=== PATIENT | female | born 1955 | race Caucasian/White ===

== ENCOUNTER 2018-07-25 14:50 | Inpatient (IN) | payer MEDICARE, OTHER ==
[~2018-07-25] VITALS: Ht 167.6 cm; Wt 73.5 kg
[2018-07-25] MEDS ORDERED: RISP3TAB14 PO (15:37)
[2018-07-25] MEDS ORDERED: DULO30CA2 PO (15:37)
[2018-07-25 15:52] LABS: BASOPHILS # (AUTO) 0.1 K/uL (0.0-8.0); BASOPHILS % (AUTO) 0.9 % (0.0-2.0); EOSINOPHILS # (AUTO) 0.1 K/uL (0.0-0.7); EOSINOPHILS % (AUTO) 1.3 % (0.0-7.0); HEMATOCRIT 43.5 % (31.2-41.9); HEMOGLOBIN 14.3 g/dL (10.9-14.3); LYMPHOCYTES # (AUTO) 2.2 K/uL (20.0-40.0); LYMPHOCYTES % (AUTO) 22.5 % (20.5-51.5); MEAN CORPUSCULAR HEMOGLOBIN 26.4 uug (24.7-32.8); MEAN CORPUSCULAR HGB CONC 33 g/dL (32.3-35.6); MEAN CORPUSCULAR VOLUME 80.4 fL (75.5-95.3); MONOCYTES # (AUTO) 0.6 K/uL (2.0-10.0); MONOCYTES % (AUTO) 6.2 % (0.0-11.0); NEUTROPHILS # (AUTO) 6.7 K/uL (1.8-8.9); NEUTROPHILS % (AUTO) 69.1 % (38.5-71.5); PLATELET COUNT (AUTO) 194 K/uL (179-408); RED BLOOD CELL COUNT(AUTO) 5.41 MIL/uL (3.63-4.92); WHITE BLOOD COUNT (AUTO) 9.8 K/uL (3.8-11.8)
[2018-07-25 16:02] LABS: CARBON DIOXIDE 28 mmol/L (21-32); CHLORIDE 103 mmol/L (98-107); CREATININE 0.7 mg/dL (0.6-1.3); GLUCOSE 92 mg/dL (74-106); POTASSIUM 3.5 mmol/L (3.5-5.1); UREA NITROGEN, BLOOD 18 mg/dL (7-18)
[2018-07-25 16:05] LABS: *BILIRUBIN,URIN NEGATIVE (NEGATIVE); *BLOOD, URINE 1+ (NEGATIVE); *CLARITY,URINE SLIGHTLY CLOUDY (CLEAR); *COLOR,URINE YELLOW (YELLOW); *KETONES,URINE TRACE (NEGATIVE); *UROBILINOGEN,URINE 0.2 E.U./dl (NORMAL); LEUKOCYTE ESTERASE ,URINE 1+ (NEGATIVE); NITRITE, URINE NEGATIVE (NEGATIVE); PH,URINE 5.5 (5.0-8.0); UGLUCOSE NEGATIVE (NEGATIVE)
[2018-07-25 16:07] LABS: ALANINE AMINOTRANSFERASE 24 U/L (14-59); ALKALINE PHOSPHATASE 72 U/L (50-136); ASPARTATE AMINOTRANSFERASE 16 U/L (15-37); BILIRUBIN,DIRECT 0.1 mg/dL (0.0-0.2); BILIRUBIN,TOTAL 0.5 mg/dL (0.2-1.0); TOTAL PROTEIN, SERUM 8.1 g/dL (6.4-8.2)
[2018-07-25 16:09] LABS: ACETAMINOPHEN < 2.0 ug/mL (10-30); ETHANOL < 3 MG/DL (0-0)
[2018-07-25 16:17] LABS: *AMPHETAMINE, URINE NEGATIVE (NEGATIVE); *BARBITURATE, URINE NEGATIVE (NEGATIVE); *CANNABINOID, URINE NEGATIVE (NEGATIVE); *COCCAINE, URINE NEGATIVE (NEGATIVE); *OPIATE, URINE NEGATIVE (NEGATIVE); *PHENCYCLIDINE SCREEN,URINE NEGATIVE (NEGATIVE); BACTERIA,URINE MODERATE /HPF (NONE SEEN); MUCUS,URINE MODERATE /LPF (0-FEW); SQUAMOUS EPITHELIAL CELL,UR MANY /HPF (NONE SEEN); WBC,URINE 20-50 /HPF (0-3)
--- NOTE | 2018-07-25 17:16 | NUR ---
Pt resting in [facility] with NAD noted, family at bedside. Spoke with Yousuf Brown for psych eval, eta 1800.
--- NOTE | 2018-07-25 18:24 | NUR ---
Yousuf Brown arrived for psych eval.
--- NOTE | 2018-07-25 19:41 | NUR ---
Report given to RADHA Campbell Pt. admitted to MHU , under care of Dr. Cortes/Joe Belongs List completed
[2018-07-25] MEDS ORDERED: MAG HYDROX/AL HYDROX/SIMETH 30 ML LIQUID UDC PO PRN (19:45)
[2018-07-25] MEDS ORDERED: ZOLPIDEM 5 MG TABLET PO PRN (19:45)
[2018-07-25] MEDS ORDERED: LORAZEPAM 0.5 MG TABLET PO PRN (19:45)
[2018-07-25] MEDS ORDERED: MAGNESIUM HYDROXIDE 30 ML LIQUID UDC PO PRN (19:45)
[2018-07-25 20:00] VITALS: BP 134/76
[2018-07-25] MEDS ORDERED: CHOL200059 PO (21:51)
[2018-07-25] MEDS ORDERED: LOSA100T31 PO (21:51)
--- NOTE | 2018-07-26 06:34 | NUR ---
PATIENT SLEPT FOR APPROX 6HRS THROUGH THE NIGHT. SHE IS NOTED A/O 3, ABLE TO AMBULATE WITH STEADY GAIT AND ABLE TO MAKE HER NEEDS KNOWN. PATIENT IS PLEASANT AND COOPERATIVE AT THIS TIME, BRIGHT AFFECT, TANGENTIAL, FLIGHT OF IDEAS, HYPER RASTAFARI, POOR INSIGHT AND JUDGMENT IS NOTED TO THE REASON FOR HER ADMISSION TO MHU. PATIENT COMPLIANT WITH ADL. WILL CONTINUE TO MONITOR.
[2018-07-26 07:30] VITALS: BP 137/79
[2018-07-26] MEDS: DIVALPROEX SPRINKLE 125 MG CAP.SPRINK PO SCH ×2 (10:02→20:55)
[2018-07-26] MEDS: risperiDONE 1 MG TABLET PO SCH (10:02)
--- NOTE | 2018-07-26 15:42 | NUR ---
PROCESS GROUP NOTE: Patients were asked to discuss their thoughts on what knowledge or "life lessons" they would pass on to a younger generation. Subjective: "..." Objective: chemical plant worker arrived at patient bedside to invite patient to group. Patient was asleep and unable to be woken up. Assessment: Patient appeared to be sleeping calmly and deeply. chemical plant worker did not disturb. Plan: chemical plant worker will continue to encourage group attendance as scheduled and will continue to provide encouragement and support during MHU admission
[2018-07-26 16:00] VITALS: BP 139/75
[2018-07-26] MEDS ORDERED: CHOLECALCIFEROL 50000 UNIT PO SCH (16:30)
--- NOTE | 2018-07-26 17:16 | NUR ---
received patient alert on bed, AOx2, with paranoia, tends to refuse medication, seen and examined by Dr. Cortes, with new orders made, patient aware of the order, patient ambulatory self care, seen sitting in the activity room
[2018-07-26 19:56] VITALS: BP 138/88
[2018-07-26] MEDS: risperiDONE 2 MG TABLET PO SCH (20:55)
[2018-07-26] MEDS: SULFAMETH/TRIMETH 800/160 MG TABLET PO SCH (20:55)
--- NOTE | 2018-07-26 21:30 | NUR ---
RECEIVED PATIENT IN HER ROOM. SHE IS NOTED A/O X 3. SHE IS ABLE TO AMBULATE WITH STEADY GAIT AND ABLE TO MAKE HER NEEDS KNOWN. SHE WAS NOTED CALM AND PLEASANT UPON APPROACHED. BRIGHT AFFECT, DISORGANIZED, FLIGHT OF IDEAS, TANGENTIAL WITH POOR INSIGHT AND JUDGMENT TO THE REASON FOR HER ADMISSION TO MHU. PATIENT WAS COMPLIANT WITH ALL HER PO QHS MEDICATIONS INCLUDING HER ATB FOR UTI. V/S STABLE AT THIS TIME. SHE WAS REASSURED FOR HER SAFETY. WILL CONTINUE TO MONITOR.
[2018-07-26] MEDS: ACETAMINOPHEN 325 MG TABLET PO PRN (23:55)
[2018-07-27 07:30] VITALS: BP 133/68
[2018-07-27] MEDS: risperiDONE 1 MG TABLET PO SCH (08:41)
[2018-07-27] MEDS: LOSARTAN POTASSIUM 50 MG TABLET PO SCH (08:41)
[2018-07-27] MEDS: DIVALPROEX SPRINKLE 125 MG CAP.SPRINK PO SCH ×2 (08:41→20:26)
[2018-07-27] MEDS: SULFAMETH/TRIMETH 800/160 MG TABLET PO SCH ×2 (08:42→20:26)
[2018-07-27] MEDS ORDERED: Medication Not On Formulary EA (Losartan Potassium 100 MG) PO SCH (09:00)
--- NOTE | 2018-07-27 12:26 | NUR ---
Initial Discharge Instructions: Patient currently lives in a home with an elderly man and is daughter [[address], [address] [place] [address]; [phone]] by the names of "Mr. Fontaine" and his daughter, "Estella." Pt reports that she would like to return there upon discharge. Patient could not remember the contact numbers for these people. SANDY placed call to patient's Therapist, [place], at [facility] ([phone]) who confirmed that the patient does live with them. SANDY will also speak with patient's cousin, Keny ([phone]). SANDY will continue to collaborate with pt, family, support system, and MD regarding most appropriate discharge plans for this patient. SANDY will form a safe and proper discharge plan.
[2018-07-27 16:00] VITALS: BP 113/64
[2018-07-27] MEDS: risperiDONE 2 MG TABLET PO SCH (20:26)
[2018-07-27 21:17] VITALS: BP 126/67
--- NOTE | 2018-07-28 05:49 | NUR ---
GPS: REMAIN CALM AND COOPERATIVE. SLEPT FOR APPROX 8 HRS THROUGH THE NIGHT. A/O 3, ABLE TO AMBULATE WITH STEADY GAIT AND ABLE TO MAKE HER NEEDS KNOWN, BRIGHT AFFECT, TANGENTIAL, FLIGHT OF IDEAS, POOR INSIGHT AND JUDGMENT IS NOTED . PATIENT COMPLIANT WITH ADL. WILL CONTINUE TO MONITOR.
[2018-07-28 07:30] VITALS: BP 136/77
[2018-07-28] MEDS: DIVALPROEX SPRINKLE 125 MG CAP.SPRINK PO SCH ×2 (08:03→20:08)
[2018-07-28] MEDS: SULFAMETH/TRIMETH 800/160 MG TABLET PO SCH ×2 (08:03→20:08)
[2018-07-28] MEDS: LOSARTAN POTASSIUM 50 MG TABLET PO SCH (08:03)
[2018-07-28] MEDS: risperiDONE 1 MG TABLET PO SCH (08:04)
[2018-07-28] MEDS ORDERED: risperiDONE 1 MG TABLET PO SCH (09:00)
--- NOTE | 2018-07-28 09:10 | NUR ---
PATIENT HAS RECEIVED RISPERDAL 1MG PO. PT'S MEDICATION HAS BEEN INCREASED TO 2 MG PO AM. SPOKE WITH DR. ALANIS, ORDER RECEIVED TO START 2 MG TOMORROW, 07/29/18
[2018-07-28 16:00] VITALS: BP 118/65
[2018-07-28 20:00] VITALS: BP 131/66
[2018-07-28] MEDS: risperiDONE 2 MG TABLET PO SCH (20:08)
[2018-07-29] MEDS: ACETAMINOPHEN 325 MG TABLET PO PRN ×2 (00:43→20:29)
--- NOTE | 2018-07-29 06:05 | NUR ---
GPS: REMAIN CALM AND COOPERATIVE. SLEPT FOR APPROX 8 HRS THROUGH THE NIGHT. A/O 3, ABLE TO AMBULATE WITH STEADY GAIT AND ABLE TO MAKE HER NEEDS KNOWN, TANGENTIAL, FLIGHT OF IDEAS, POOR INSIGHT AND JUDGMENT IS NOTED . RESTING IN BED COMFORTABLY.PATIENT COMPLIANT WITH ADL. WILL CONTINUE TO MONITOR.
[2018-07-29 08:01] VITALS: BP 142/70
[2018-07-29] MEDS: DIVALPROEX SPRINKLE 125 MG CAP.SPRINK PO SCH ×2 (08:20→20:22)
[2018-07-29] MEDS: risperiDONE 2 MG TABLET PO SCH ×2 (08:20→20:22)
[2018-07-29] MEDS: LOSARTAN POTASSIUM 50 MG TABLET PO SCH (08:21)
[2018-07-29 16:47] VITALS: BP 106/58
[2018-07-29 21:16] VITALS: BP 120/57
[2018-07-30] MEDS: LOSARTAN POTASSIUM 50 MG TABLET PO SCH (08:21)
[2018-07-30] MEDS: risperiDONE 2 MG TABLET PO SCH ×2 (08:21→19:45)
[2018-07-30] MEDS: DIVALPROEX SPRINKLE 125 MG CAP.SPRINK PO SCH ×2 (08:21→19:45)
[2018-07-30 08:22] VITALS: BP 119/67
[2018-07-30 15:13] VITALS: BP 135/55
[2018-07-30 20:00] VITALS: BP 122/71
[2018-07-31 07:30] VITALS: BP 124/74
[2018-07-31] MEDS: DIVALPROEX SPRINKLE 125 MG CAP.SPRINK PO SCH ×2 (08:06→20:23)
[2018-07-31] MEDS: LOSARTAN POTASSIUM 50 MG TABLET PO SCH (08:06)
[2018-07-31] MEDS: risperiDONE 2 MG TABLET PO SCH ×2 (08:06→20:24)
[2018-07-31] MEDS ORDERED: ERGOCALCIFEROL 50,000 UNIT CAPSULE PO SCH (09:00)
[2018-07-31 15:08] VITALS: BP 99/71
--- NOTE | 2018-07-31 16:56 | NUR ---
GROUP NOTE: GOAL Patient will participate in the group discussion of the day or actively listen to other peers responses. INTERVENTION Social Work Emery Grinder invited patient to participate in a group discussion held from 2:00-2:45 pm in the activities room. Social Work Emery Grinder facilitated a group discussion regarding patients proudest moments and support systems that helped them accomplish those moments. SW redirected pt. when needed. RESPONSE Patient expressed interest in participating in todays group discussion. Patient expressed that she is most proud of her resiliency through the highs and lows of life. Patient discussed: of a family member, her immigrant status preventing her from furthering her education as well as the importance of sabianism. Patient discussed that the memory of a loved one kept her motivated and pt. is grateful for where life has brought her to. Patient shared a poem with the group and presented in good spirits. Patient interacted with her peer and remained calm and cooperative throughout group. PLAN Patient will be invited to attend the next group discussion.
--- NOTE | 2018-07-31 18:01 | NUR ---
Patient remained in room through out the day. patient still demonstrates delusions and paranoia behavior. Patient is compliant with medical treatment and medication administration. Patient denies any pain or discomfort at this time. Will continue to monitor and endorse plan of care to shift nurse manager nurse.
[2018-07-31 22:16] VITALS: BP 139/82
--- NOTE | 2018-08-01 05:50 | NUR ---
Received Pt in the hallway socializing with peers. A+Ox4, Pt is calm and pleasant on approach. Denies SI and verbally contracts for safety. Denies AH/VH. Compliant with medications, cooperative with care. Denies pain, in no acute distress.
[2018-08-01 07:58] VITALS: BP 119/69
[2018-08-01] MEDS: LOSARTAN POTASSIUM 50 MG TABLET PO SCH (08:13)
[2018-08-01] MEDS: risperiDONE 2 MG TABLET PO SCH ×2 (08:13→20:04)
[2018-08-01] MEDS: DIVALPROEX SPRINKLE 125 MG CAP.SPRINK PO SCH ×2 (08:13→20:03)
[2018-08-01 15:26] VITALS: BP 114/63
[2018-08-01 20:00] VITALS: BP 143/69
--- NOTE | 2018-08-01 20:00 | NUR ---
Rec'd pt in her room laying in bed with eyes closed. Opens her eyes to name. No s/s of acute distress noted. A&Ox3, cooperative and compliant with plan of care at this time. Does not appear to be responding to any internal stimuli. All safety precautions in place. Took all due medications. Will continue to monitor.
--- NOTE | 2018-08-02 06:25 | NUR ---
Pt without change in condition during shift. Slept x7.3 hours without difficulty. No s/s of acute distress noted. No episode of responding to internal stimuli. Woke up at 0500 and showered. Able to provide self care. All safety precautions in place. Will endorse to oncoming shift.
[2018-08-02 07:30] VITALS: BP 128/76
[2018-08-02] MEDS: risperiDONE 2 MG TABLET PO SCH ×2 (08:16→20:38)
[2018-08-02] MEDS: DIVALPROEX SPRINKLE 125 MG CAP.SPRINK PO SCH ×2 (08:16→20:38)
[2018-08-02] MEDS: LOSARTAN POTASSIUM 50 MG TABLET PO SCH (08:17)
[2018-08-02 16:00] VITALS: BP 103/53
[2018-08-02 20:28] VITALS: BP 124/69
--- NOTE | 2018-08-03 03:18 | NUR ---
GPS/NSG Patient first observed lying in bed without change in condition throughout shift. Compliant with medication. No s/s of acute distress noted. No episode of responding to internal stimuli. Able to provide self care. All safety precautions in place. Continue to follow plan of care as well as monitor for safety.
[2018-08-03 07:30] VITALS: BP 133/77
[2018-08-03] MEDS: DIVALPROEX SPRINKLE 125 MG CAP.SPRINK PO SCH ×2 (08:22→20:45)
[2018-08-03] MEDS: risperiDONE 2 MG TABLET PO SCH ×2 (08:22→21:00)
[2018-08-03] MEDS: LOSARTAN POTASSIUM 50 MG TABLET PO SCH (08:22)
--- NOTE | 2018-08-03 15:00 | NUR ---
Gps/Manager [employer]- Discharge planning in progress for tomorrow at around 1600 per SW. Cousin to provide transportation . Had been cooperative with staff, pleasant affect, attended her group , staying in the activity room. Making her needs known.
[2018-08-03 16:00] VITALS: BP 108/66
[2018-08-03 20:01] VITALS: BP 139/75
[2018-08-04 07:30] VITALS: BP 147/77
[2018-08-04 08:17] VITALS: BP 145/75
[2018-08-04] MEDS: risperiDONE 2 MG TABLET PO SCH (08:17)
[2018-08-04] MEDS: LOSARTAN POTASSIUM 50 MG TABLET PO SCH (08:17)
[2018-08-04] MEDS: DIVALPROEX SPRINKLE 125 MG CAP.SPRINK PO SCH (08:17)
--- NOTE | 2018-08-04 10:36 | NUR ---
DISCHARGE NOTE: Patient will be discharged back to her home [[address] [place] [address]; ]. Transportation will be provided by patients cousin Keny [[phone]], at 4:00pm. Patient is alert and oriented x3-4, is able to plan for self-care, and denies any SI/HI. Patient is aware and agreeable with discharge plans. Patient will follow-up with psychiatrist, Dr. Antonio Eugene [[id number], [address], [place] [address]; ] on August 18, 2018 at 10:00am. If patient is in need of a psychiatric follow-up sooner, she has been has been provided with a referral to [facility] [ [place] [address]; ] where patient can walk-in for appointment Tuesday thru Tuesday anytime between 8:00pm-5:00pm. Patient also has a follow-up appointment with her therapist, Radha Umaña [[id number], [address], [place] [address]; ], on Wednesday, August 08, 2018 at 11:00am. diversified crops ii farmworker has sent continuing care packet to psychiatrist. Patient has also been provided with outpatient mental health resources including [facility] Line [ ], Ann-Marie Taylor [ ], and the National Suicide Prevention Lifeline [ ].
--- NOTE | 2018-08-04 17:24 | NUR ---
PT LEFT UNIT ON W/C ACCOMPANIED BY ARINA AND COUSIN ZEHRA TO PRIVATE VEHICLE. PT IS PLEASANT, CALM AND COOPERATIVE. DENIES PAIN OR DISCOMFORT. DENIES SI AND HI. NO AGGRESSIVE OR COMBATIVE BEHAVIOR NOTED. ABLE TO VERBALIZE NEEDS. LEFT WITH ALL NOTED BELONGINGS AND PAPERWORK. V/S STABLE. IN NO ACUTE DISTRESS.
== END 2018-08-04 17:26 | disposition home or self-care (01) | DRG 885 ==
LOC: ER 14:50 → GPS 19:15
PROVIDERS: ADMIT Psychiatry & Neurology Psychiatry; ATTEND Nurse Practitioner Acute Care
DX: F25.0 Schizoaffective disorder, bipolar type (principal); G93.41 Metabolic encephalopathy; I42.2 Other hypertrophic cardiomyopathy; N39.0 Urinary tract infection, site not specified; Z79.899 Other long term (current) drug therapy
CPT/HCPCS: 36415; 70030-TC; 71045; 80164; 80307; 85025; 85730; 87086; 93005; A4663; G0480; G0480-TC